=== PATIENT | female | born 1960 | race Caucasian/White ===

== ENCOUNTER → 2020-01-28 | Outpatient (CLI) | payer OTHER ==
[~2020-01-28] VITALS: Ht 157.5 cm; Wt 68.0 kg
[~2020-01-28] MED LIST: BENADRYL25 MG PO; COSOPT OCUMETER10 M1 OPHTHALMIC; CRANBERRY200 MG PO; HYDROCODON-ACE1 EAC8 PO; INDERAL LA60 M1 PO; LEXAPRO 10 MG T10 M1 PO; LIPITOR10 MG PO; MELATONIN10 M2 PO; NEURONTIN 300M300 M2 PO; PROTONIX40 M2 PO; RENAL-VITE TAB0.8 MG PO; ZIOPTAN 0.00151 EACH OPHTHALMIC
--- NOTE | 2020-01-29 10:16 | P ---
[facility] [place] [address] PROCEDURE REPORT Name: DEMETRIA SOUZA MANJINDER Room #: REG IRAIDA [place]#: [id number] Admission: 01/28/20 Attend Phys: Sy Beltrán Discharge: Date of : 56 Report #: [id number] THIS REPORT FOR: cc: Sabra Serrano MD, Kristin E. MD McElhinney, Christian C. MD ~ CC: Sy Serrano MD DATE OF SERVICE: 01/28/2020 PROCEDURE PERFORMED: Upper endoscopy with biopsies. HISTORY OF PRESENT ILLNESS: The patient is a 59-year-old female who has had a previous history of gastric bypass surgery in 2008. This was apparently a Tegan-en-Y anastomosis. The patient had a hospitalization at [facility] the [place] in October of this year for significant abdominal pain. I do not have a copy of the results; however, it appears she had likely peptic ulcer with possible perforation resulting in peritonitis. This did not require surgery. The patient was hospitalized for a week, was treated with PPI therapy and antibiotics and her symptoms resolved. Prior to this hospitalization, she did report some heartburn symptoms. She was not taking any NSAIDs. Since the hospitalization, she has been on Protonix 40 mg b.i.d. Denies any symptoms at this time. Denies any dysphagia. Her weight has been stable recently. She denies any obvious bleeding also during this episode. Plan is for upper endoscopy. DESCRIPTION OF PROCEDURE: The risks and benefits of the procedure were explained to the patient; those risks including but not limited to bleeding, perforation and the risk of sedation. She understood these risks and gave informed consent. Sedation was given using propofol per anesthesia. Next, using a standard Olympus upper endoscope, the scope was placed in the patient's mouth and advanced under direct vision through the esophagus, stomach and into the jejunum. The esophagus was normal throughout. The GE junction was normal. Upon entering the stomach, obvious surgical changes consistent with a Tegan-en-Y gastric bypass were noted. The gastric remnant was very small. There was mild erythema noted in the remaining gastric mucosa. No evidence of ulceration. Biopsies were obtained to rule out H. pylori. The surgical anastomosis was somewhat narrowed; however, the scope did pass through this area without difficulty. I was able to advance the scope well into the jejunum without difficulty. The jejunum was normal. There was no evidence of ulcerations or bleeding. At this point, the scope was then withdrawn and the procedure terminated. The patient tolerated the procedure well. IMPRESSION: Surgical changes consistent with gastric bypass Tegan-en-Y [facility] [address] [place] [address] PROCEDURE REPORT Name: DEMETRIA SOUZA Room #: REG IRAIDA [place]#: [id number] Admission: 01/28/20 Attend Phys: Sy Beltrán Discharge: Date of : 56 Report #: [id number] anastomosis, mild narrowing at the surgical anastomosis, mild gastric erythema. No evidence of ulceration. RECOMMENDATIONS: 1. Await biopsy results. 2. Would continue b.i.d. PPI therapy. Thank you for allowing me to participate in her care. <ELECTRONICALLY SIGNED> By: Sy Goodson MD 01/29/20 [id number] Sy Goodson MD /nt
--- NOTE | 2020-01-31 17:08 | PATH ---
[facility] [address] [place] [address] PATHOLOGY RPT PROCEDURE Name: IVONNE SOUZA MANJINDER Room #: REG [facility] Theresa.#: [id number] Admission: 01/28/20 Date of : 56 Discharge: Report #: [id number] Path Case #: [id number] [facility] Accession Number: [id number] . 01 Material submitted: . stomach - BX OF GASTRITIS . 01 Clinical history: . Ulcer. . 02 Diagnosis: Gastric mucosa, gastritis, rule out H. pylori, endoscopic biopsy: - Mild reactive gastropathy. - Negative for intestinal metaplasia or atrophy. - Negative for Helicobacter pylori (properly controlled immunohistochemical stain performed). (IUV:pit 01/31/2020) QTP 01/31/2020 1259 Local . 02 Electronically signed: . Lynda Burk MD, Pathologist NPI- [id number] . 01 Gross description: . Received in formalin labeled "Souza Ivonne, BX of gastritis" is a 1.2 x 0.5 x 0.1 cm aggregate of ball-brown soft tissue fragments. The specimen is submitted entirely in A1. ([facility]; 01/30/2020) [facility] 01/30/2020 1218 Local . 02 Pathologist provided ICD-10: K31.9 . 02 CPT . 406668, [id number] Specimen Comment: A courtesy copy of this report has been sent to [phone], [phone] Specimen Comment: [phone] Specimen Comment: Report sent to / DR NAM Performed at: [address], [place] [id number] MD Terence Harris MD Phone: [phone] Performed at: [address] [id number] MD Lynda Burk MD Phone: [phone]
== END | disposition home or self-care (01) ==
LOC: GI 12-06 20:27
DX: K31.9 Disease of stomach and duodenum, unspecified (principal); R10.9 Unspecified abdominal pain; Z98.84 Bariatric surgery status; K21.9 Gastro-esophageal reflux disease without esophagitis; I12.0 Hypertensive chronic kidney disease with stage 5 chronic kidney disease or end stage renal disease; E11.22 Type 2 diabetes mellitus with diabetic chronic kidney disease; N18.5 Chronic kidney disease, stage 5; G47.30 Sleep apnea, unspecified; H40.9 Unspecified glaucoma; Z98.890 Other specified postprocedural states; Z87.891 Personal history of nicotine dependence; Z90.49 Acquired absence of other specified parts of digestive tract; Z90.710 Acquired absence of both cervix and uterus; Z98.41 Cataract extraction status, right eye; Z98.42 Cataract extraction status, left eye; Z79.899 Other long term (current) drug therapy; Z88.2 Allergy status to sulfonamides
CPT/HCPCS: 62110; 62900